=== PATIENT | female | born 1975 | race Caucasian/White ===

== ENCOUNTER → 2021-10-24 | Outpatient (CLI) | payer OTHER | LOC: COL.RAD 13:48 | DX: M25.551 Pain in right hip (principal) | CPT/HCPCS: J3301; Q9967 ==

== ENCOUNTER → 2022-09-20 | Outpatient (CLI) | payer OTHER | LOC: COL.RAD 09:33 | DX: M25.551 Pain in right hip (principal) | CPT/HCPCS: J3301; Q9967 ==